=== PATIENT | male | born 1995 | race Caucasian/White ===

== ENCOUNTER → 2024-10-06 15:11 | Outpatient (REF) | payer BC, SELFPAY | LOC: HWRAD 15:11 | PROVIDERS: ATTENDING PHYSICIAN Specialist | DX: R39.89 Other symptoms and signs involving the genitourinary system (principal); N20.1 Calculus of ureter | CPT/HCPCS: 74176 ==

== ENCOUNTER 2024-10-09 12:10 | Emergency (ER) | payer BC, SELFPAY ==
[2024-10-09 12:13] VITALS: BP 166/96
[2024-10-09 12:32] LABS: Urine Albumin Negative (Neg - Trace); Urine Bilirubin Negative (Negative); Urine Character Clear (Clear); Urine Color Yellow; Urine Glucose Negative (Negative); Urine Ketone Negative (Negative); Urine Leukocyte Negative (Negative); Urine Nitrite Negative (Negative); Urine Occult Blood Negative (Negative); Urine Specific Gravity 1.005 (<1.030); Urine Urobilinogen Negative (Neg - 1+)
[2024-10-09 12:36] LABS: % Basophils 0.3 % (0-2); % Immature Granulocytes 0.2 % (0-0.5); % Lymphocytes 24.4 % (20.5-51.1); % Monocytes 9.3 % (1.7-9.3); % Neutrophils 64.8 % (42.2-75.2); Absolute Eosinophils 0.1 10^3/uL (0-0.7); Absolute Lymphocytes 1.4 10^3/uL (1.2-3.4); Absolute Monocytes 0.5 10^3/uL (0.1-0.6); Absolute Neutrophils 3.8 10^3/uL (1.4-6.5); Hematocrit 40.4 % (39.0-52.0); Hemoglobin 14.5 g/dL (13.0-18.0); Mean Corp Hgb Conc. 35.9 g/dL (33.0-37.0); Mean Corpuscular Hgb 31.9 pg (27.0-31.0); Mean Corpuscular Volume 88.8 fL (80.0-94.0); Mean Platelet Volume 8.5 fL (7.4-10.4); Nucleated Red Blood Cells % 0 % (-); Platelet Count 303 10^3/uL (130-400); Red Blood Cell Count 4.55 10^6/uL (4.70-6.10); Red Cell Dist. Width 12.6 % (11.5-14.5); White Blood Cell Count 5.8 10^3/uL (4.8-10.8)
[2024-10-09 12:48] LABS: ALT (SGPT) 59 U/L (0-50); AST (SGOT) 36 U/L (17-59); Albumin 4.4 g/dl (3.5-5.0); Alkaline Phosphatase 57 U/L (38-126); Blood Urea Nitrogen 15 mg/dl (9-20); Calcium 9.3 mg/dl (8.4-10.2); Carbon Dioxide 29 mmol/L (22-30); Chloride 104 mmol/L (98-107); Glucose 87 mg/dl (70-99); Lipase 74 U/L (23-300); Potassium 4.4 mmol/L (3.5-5.1); Sodium 138 mmol/L (135-145); Total Bilirubin 1.5 mg/dl (0.2-1.3); Total Protein 6.7 g/dl (6.3-8.2); eGFR > 60.00
--- NOTE | 2024-10-09 14:46 | ED.GENMED ---
History of Present Illness
General
Chief Complaint: Abdominal Pain
Time Seen by Provider: 10/09/24 14:46
History of Present Illness
History of Present Illness:
TIME OF INITIAL ENCOUNTER: 2:50 PM
HPI: Patient presents with lower abdominal pain. This has been ongoing for 1 to 2 weeks. He saw urologist who thought maybe he had a kidney stone but CT did not show any signs of kidney stone from 10/06/2024. The CT report did show 'mild
constipation' however the patient states he has normal bowel meant 2-3 times per day and is certain that this is not constipation related. He states the pain at times radiates into 'the taint' region. He currently has no pain.
EXAM:
GENERAL: Well appearing in no distress
HEENT: Moist oral mucosa
CARDIOVASCULAR: No murmurs, normal heart rate, regular rhythm, No chest wall tenderness
PULMONARY: No respiratory distress, breath sounds are clear and equal
ABDOMEN: Soft with no peritoneal signs, no tenderness
: There is no prostatic hypertrophy and no evidence for prostatitis, normal testicles and normal epididymis bilaterally with no tenderness, normal cremasteric reflex
NEUROLOGIC: Excellent strength all extremities, no coordination deficits
PSYCHIATRIC: Appropriate mental status, normal insight and judgement
EXTREMITIES: Nontender, no edema, moves all extremities equally
SKIN: No rash, no lesions
NUMBER AND COMPLEXITY OF PROBLEMS ADDRESSED AT THE ENCOUNTER
� Chronic conditions affecting care: History of asthma, has had colonoscopies and had banding for hemorrhoids
� Acute Exacerbation and/or Progression of Chronic Illness: This is an acute problem
� Differential Diagnosis includes: Rectal spasm, pelvic floor muscle strain/spasm, no clear evidence for varicocele/hydrocele, stone ruled out by CT the other day
AMOUNT AND/OR COMPLEXITY OF DATA TO BE REVIEWED AND ANALYZED
� I performed an independent evaluation of and my interpretation is:
EKG:
CT:
X-rays:
Laboratory Studies: White count is 5.8, hemoglobin 14.5, chemistries unremarkable however the total bili is 1.5, urinalysis unremarkable
Other: US scrotum unremarkable
� Review of other/old records: I reviewed the CAT scan report from 10/06/2024 which shows mild diffuse colonic stool burden
� Clinical information was obtained by an independent historian: I spoke to at bedside
� Prescriptions/Medications Considered but not given:
� Further testing considered but not performed:
RISK OF COMPLICATIONS AND/OR MORBIDITY OR MORTALITY OF PATIENT MANAGEMENT
� Social determinants of health affecting care: Lives at home w/
� Discussion with other providers:
� Escalation of care including admission/observation vs risk of discharge considered: The patient currently is pain-free. Will obtain ultrasound imaging for further evaluation. Labs and urinalysis unremarkable.
ANY OTHER UPDATES:
5:35 PM: I reassessed patient. No significant symptoms persisting while in the emergency department. He appears very comfortable. Suggested he could follow-up with the urologist again. Physical examination is unremarkable.
Past History
Past History
ED Past Medical History: Asthma and Hypercholesterolemia
ED Past Surgical History: Other (wisdom teeth)
Social History
Tobacco: Vaping
Personal: Single
Employment: Employed
Family History
Family History: Negative Early CAD or CAD
Phy Exam
Physical Exam
Physical Exam:
See HPI
Course
Orders/Labs/Results
Orders:
Orders
10/09/24 12:21
Complete Blood Count/With Diff Urgent
Comprehensive Metabolic Panel Urgent
Lipase Urgent
Urinalysis Reflex To Culture Urgent
Date Specimen was Collected: 10/09/24
Time Specimen was Collected: 12:16
10/09/24 15:11
US Scrotum Urgent
Comment:
Reason For Exam: pain
Abnormal Lab Results
10/09/24
12:21
RBC 4.55 L 10^6/uL
(4.70-6.10)
MCH 31.9 H pg
(27.0-31.0)
Total Bilirubin 1.5 H mg/dl
(0.2-1.3)
ALT 59 H U/L
(0-50)
10/09/24 12:21
10/09/24 12:21
Vital Signs
Initial and Last Documented VS:
Initial Vital Signs
Temp Pulse Resp BP Pulse Ox
36.8 C 68 20 166/96 99
10/09/24 12:13 10/09/24 12:13 10/09/24 12:13 10/09/24 12:13 10/09/24 12:13
Last Documented Vital Signs
Temp Pulse Resp BP Pulse Ox
36.8 C 68 20 166/96 99
10/09/24 12:13 10/09/24 12:13 10/09/24 12:13 10/09/24 12:13 10/09/24 12:13
*Critical Care Note
Total Time (30-74mins, 75-104mins- exclusive of procedures): Not Applicable
ED Attending Note
-
Portions of this chart may have been created with voice recognition software.� Occasional wrong word or��sound alike� substitutions may have occurred due to the inherent limitations of voice recognition software.
Discharge Plan
Departure
Patient Disposition: Home (Routine Discharge)
Date of Disposition: 10/09/24
Time of Disposition: 17:20
Patient with high blood pressure during this ER visit?: Yes
Discharge Problem:
Acute pelvic pain
Instructions: BLOOD PRESSURE
Prescriptions:
No Action
escitalopram oxalate [Lexapro] 10 mg Tablet
10 mg PO DAILY
Patient Comments:
pt states heehas not taken this med consistently
Referrals:
NONE,* [Family Provider] -
Activity Restrictions/Additional Instructions:
The cause of your symptoms is unclear. The white count is normal, hemoglobin is normal, urinalysis shows no sign of infection or any bleeding. When I fell your prostate I noted no abnormality. The ultrasound was unremarkable with exception of a
small simple cyst at the right epididymal head which would not be the cause of your symptoms. There were no hydroceles nor varicoceles.
Interventions
Interventions:
*Risk Screen - Suicide Last Done: 10/09/24 15:30
*General Assessment Last Done: 10/09/24 12:13
*Neglect/Abuse Screening Last Done: 10/09/24 15:30
*ED- Fall Risk Assessment Last Done: 10/09/24 15:30
*ED COVID-19 Vaccine History Last Done: 10/09/24 15:30
CL-Shdphm-Vivboeeqqk Assessment Last Done: 10/09/24 15:30
Discharge Date and Time
Print Language: SERBIAN
[2024-10-09 17:37] VITALS: BP 147/89
== END 2024-10-09 17:39 | disposition home or self-care (01) ==
LOC: EMR 12:10
PROVIDERS: Emergency Medicine; EMERGENCY PHYSICIAN Emergency Medicine
DX: R10.2 Pelvic and perineal pain (principal); J45.909 Unspecified asthma, uncomplicated; E78.00 Pure hypercholesterolemia, unspecified; F17.290 Nicotine dependence, other tobacco product, uncomplicated
CPT/HCPCS: 99284; 76870; 80053; 81003; 83690; 85025; 93976